=== PATIENT | male | born 1985 | race Caucasian/White ===

== ENCOUNTER 2020-08-05 18:01 | Emergency (ER) | payer OTHER ==
[~2020-08-05] VITALS: Ht 170.2 cm; Wt 113.7 kg
[2020-08-05 18:51] LABS: HEMATOCRIT 43.2 % (42.0-52.0); HEMOGLOBIN 14.7 g/dl (13.5-17.5); MEAN CORPUSCULAR HEMOGLOBIN 33.2 pg (27.0-33.0); MEAN CORPUSCULAR VOLUME 97.5 fl (80.0-96.0); PLATELET COUNT, AUTOMATED 244 10^3/uL (150-450); RED BLOOD COUNT 4.43 10^6/uL (4.30-6.10); WHITE BLOOD COUNT 12.1 10^3/uL (4.0-10.0)
[2020-08-05 19:08] LABS: ATYPICAL LYMPH 2 % (0-5); BASOPHILS 11 % (0-1); EOSINOPHILS 2 % (0-3); LYMPHOCYTES 27 % (16-44); METAMYELOCYTES 4 % (0-0); MONOCYTES 15 % (0-5); NEUTROPHILS 36 % (28-66)
[2020-08-05 19:09] LABS: ANISOCYTOSIS 1+; PLATELET ESTIMATE NORMAL (NORMAL)
--- NOTE | 2020-08-05 19:12 | REPVR ---
PROCEDURE INFORMATION: Exam: CT Head Without Contrast Exam date and time: 08/05/2020 6:54 PM Age: 35 years old Clinical indication: Syncope and collapse TECHNIQUE: Imaging protocol: Computed tomography of the head without contrast. Radiation optimization: All CT scans at this facility use at least one of these dose optimization techniques: automated exposure control; mA and/or kV adjustment per patient size (includes targeted exams where dose is matched to clinical indication); or iterative reconstruction. COMPARISON: No relevant prior studies available. FINDINGS: Brain: Normal. No hemorrhage. Unremarkable white matter. No mass effect. Cerebral ventricles: No ventriculomegaly. Bones/joints: Unremarkable. No acute fracture. Paranasal sinuses: Visualized sinuses are unremarkable. No fluid levels. Mastoid air cells: Visualized mastoid air cells are well aerated. Soft tissues: Unremarkable. IMPRESSION: No acute intracranial abnormality. Electronically signed by: Gab Hernandez On 08/05/2020 19:12:10 PM
--- NOTE | 2020-08-05 19:13 | REPVR ---
PROCEDURE INFORMATION: Exam: XR Chest, 1 View Exam date and time: 08/05/2020 7:00 PM Age: 35 years old Clinical indication: Other: Syncope; Additional info: Syncope/near-syncope TECHNIQUE: Imaging protocol: XR of the chest Views: 1 view. COMPARISON: No relevant prior studies available. FINDINGS: Lungs: Unremarkable. No consolidation. Pleural space: Unremarkable. No pleural effusion. No pneumothorax. Heart/Mediastinum: Unremarkable. No cardiomegaly. Bones/joints: Unremarkable. IMPRESSION: No acute findings. Electronically signed by: Gab Hernandez On 08/05/2020 19:13:05 PM
[2020-08-05 19:35] LABS: BLOOD UREA NITROGEN 16 MG/DL (7-18); CALCIUM LEVEL 8.7 MG/DL (8.5-10.1); CARBON DIOXIDE LEVEL 28 MEQ/L (21-32); CHLORIDE LEVEL 106 MEQ/L (98-107); CK-MB VALUE MASS 10.3 NG/ML (<3.6); CPK CREATINE PHOSPHOKINASE 877 U/L (39-308); CREATININE FOR GFR 1.06 MG/DL (0.70-1.30); ETHYL ALCOHOL (ETHANOL) < 0.003 % (0.000-0.010); FREE T4 0.87 NG/DL (0.76-1.46); GLOMERULAR FILTRATION RATE > 60.0 (>60); GLUCOSE, FASTING 100 MG/DL (70-100); MB/CK RELATIVE INDEX 1.17 (< OR =4); SODIUM LEVEL 141 MEQ/L (136-145); TROPONIN I < 0.02 NG/ML (< 0.10)
[2020-08-05 21:26] LABS: AMPHETAMINES LEVEL URINE NEGATIVE (NEGATIVE); BARBITURATES URINE NEGATIVE (NEGATIVE); BENZODIAZEPINES URINE NEGATIVE (NEGATIVE); CANNABINOIDS URINE NEGATIVE (NEGATIVE); COCAINE METABOLITE URINE NEGATIVE (NEGATIVE); METHADONE URINE NEGATIVE (NEGATIVE); OPIATES URINE NEGATIVE (NEGATIVE); PHENCYCLIDINE URINE NEGATIVE (NEGATIVE)
[2020-08-05 22:15] VITALS: BP 147/82
--- NOTE | 2020-08-07 15:16 | ECGEPIP ---
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
== END 2020-08-05 22:46 | disposition home or self-care (01) ==
LOC: M ED 18:01
DX: R55 Syncope and collapse (principal); F17.200 Nicotine dependence, unspecified, uncomplicated
CPT/HCPCS: 36415; 70450; 71045; 80048; 80307; 82550; 82553; 84439; 84443; 85025; 93005; 93041; 94760; 99285; G0480

== ENCOUNTER → 2021-01-16 | Outpatient (REF) | payer OTHER ==
[~2021-01-16] MED LIST: LISI-898
[2021-01-16 14:03] LABS: BASO % 0.3 % (0.0-1.0); EOS # 0.2 10^3/uL (0.0-0.5); EOS % 2.3 % (0.0-3.0); HEMATOCRIT 48.3 % (42.0-52.0); LYMPH # 3.6 10^3/uL (1.5-5.0); LYMPH % 37.9 % (24.0-44.0); MEAN CORPUSCULAR HGB CONC 33.1 g/dl (32.0-36.5); MEAN CORPUSCULAR VOLUME 99.6 fl (80.0-96.0); MONO # 0.8 10^3/uL (0.0-0.8); MONO % 8.2 % (2.0-8.0); NEUTROPHILS # 4.8 10^3/uL (1.5-8.5); NEUTROPHILS % 50.9 % (36.0-66.0); PLATELET COUNT, AUTOMATED 282 10^3/uL (150-450); RED BLOOD COUNT 4.85 10^6/uL (4.30-6.10); WHITE BLOOD COUNT 9.5 10^3/uL (4.0-10.0)
[2021-01-16 14:46] LABS: HEMOGLOBIN A1c 5.7 %
[2021-01-16 14:47] LABS: ALBUMIN 4.1 GM/DL (3.2-5.2); ALT/SGPT 76 U/L (12-78); BILIRUBIN,TOTAL 0.2 MG/DL (0.2-1.0); BLOOD UREA NITROGEN 18 MG/DL (7-18); CALCIUM LEVEL 9.2 MG/DL (8.5-10.1); CARBON DIOXIDE LEVEL 31 MEQ/L (21-32); CHLORIDE LEVEL 105 MEQ/L (98-107); CHOLESTEROL LEVEL 196 MG/DL (<200); GLOMERULAR FILTRATION RATE > 60.0 (>60); GLUCOSE, FASTING 98 MG/DL (70-100); HDL CHOLESTEROL 28 MG/DL (>40); LDL CHOLESTEROL 124 MG/DL (<100); NON-HDL-C 168 MG/DL; POTASSIUM SERUM 4.7 MEQ/L (3.5-5.1); SODIUM LEVEL 140 MEQ/L (136-145); TOTAL PROTEIN 7.4 GM/DL (6.4-8.2); TRIGLYCERIDES LEVEL 219 MG/DL (<150)
== END ==
LOC: M SFHCPLAZ 09:13
PROVIDERS: ATTEND Physician Assistant Medical
DX: Z00.00 Encounter for general adult medical examination without abnormal findings (principal)

== ENCOUNTER 2021-01-26 22:24 | Emergency (ER) | payer OTHER ==
[~2021-01-26] VITALS: Ht 170.2 cm; Wt 114.4 kg
[2021-01-26] MEDS ORDERED: LISI-898 (22:35)
[2021-01-26] MEDS ORDERED: ASPIRIN 81 MG CHEW TABLET PO ONE (23:00)
[2021-01-26] MEDS ORDERED: NITROGLYCERIN 0.4 MG SUBL TABLET SL PRN (23:00)
[2021-01-26 23:03] LABS: BASO % 0.3 % (0.0-1.0); EOS # 0.3 10^3/uL (0.0-0.5); EOS % 2.4 % (0.0-3.0); HEMATOCRIT 46.2 % (42.0-52.0); HEMOGLOBIN 15.6 g/dl (13.5-17.5); LYMPH # 4.7 10^3/uL (1.5-5.0); LYMPH % 41.1 % (24.0-44.0); MEAN CORPUSCULAR HEMOGLOBIN 33.1 pg (27.0-33.0); MEAN CORPUSCULAR HGB CONC 33.8 g/dl (32.0-36.5); MEAN CORPUSCULAR VOLUME 97.9 fl (80.0-96.0); MONO # 1.1 10^3/uL (0.0-0.8); MONO % 9.6 % (2.0-8.0); NEUTROPHILS # 5.3 10^3/uL (1.5-8.5); NEUTROPHILS % 46.2 % (36.0-66.0); PLATELET COUNT, AUTOMATED 262 10^3/uL (150-450); RED BLOOD COUNT 4.72 10^6/uL (4.30-6.10); WHITE BLOOD COUNT 11.4 10^3/uL (4.0-10.0)
[2021-01-26 23:11] LABS: INR 0.88; PARTIAL THROMBOPLASTIN TIME 27.7 SECONDS (24.2-38.5); PROTHROMBIN TIME 12.1 SECONDS (12.5-14.3)
[2021-01-26 23:19] LABS: D-DIMER QUANT < 270 ng/ml (<500)
[2021-01-26 23:27] LABS: ALT/SGPT 80 U/L (12-78); BILIRUBIN,DIRECT < 0.1 MG/DL (0.0-0.2); BILIRUBIN,TOTAL 0.1 MG/DL (0.2-1.0); BLOOD UREA NITROGEN 19 MG/DL (7-18); CALCIUM LEVEL 8.5 MG/DL (8.5-10.1); CARBON DIOXIDE LEVEL 28 MEQ/L (21-32); CHLORIDE LEVEL 107 MEQ/L (98-107); CK-MB VALUE MASS 6.7 NG/ML (<3.6); CPK CREATINE PHOSPHOKINASE 351 U/L (39-308); CREATININE FOR GFR 0.92 MG/DL (0.70-1.30); GLOMERULAR FILTRATION RATE > 60.0 (>60); GLUCOSE, FASTING 84 MG/DL (70-100); LIPASE 268 U/L (73-393); MB/CK RELATIVE INDEX 1.91 (< OR =4); POTASSIUM SERUM 4.2 MEQ/L (3.5-5.1); SODIUM LEVEL 140 MEQ/L (136-145); TOTAL PROTEIN 7.4 GM/DL (6.4-8.2); TROPONIN I < 0.02 NG/ML (< 0.10)
--- NOTE | 2021-01-26 23:36 | REPVR ---
PROCEDURE INFORMATION: Exam: XR Chest Exam date and time: 01/26/2021 11:07 PM Age: 35 years old Clinical indication: Chest pain TECHNIQUE: Imaging protocol: XR of the chest Views: 1 view. COMPARISON: CR PORTABLE CHEST X-RAY 08/05/2020 6:57 PM FINDINGS: Lungs: There is decreased inflation of the lungs. Pleural spaces: Unremarkable. No pleural effusion. No pneumothorax. Heart/Mediastinum: Unremarkable. No cardiomegaly. Bones/joints: Unremarkable. Soft tissues: There are moderately generous overlying soft tissues. IMPRESSION: Negative poor inspiratory chest without change from 08/05/2020 . Electronically signed by: Easotn Starr On 01/26/2021 23:35:45 PM
[2021-01-27 05:37] LABS: CK-MB VALUE MASS 5.5 NG/ML (<3.6); CPK CREATINE PHOSPHOKINASE 261 U/L (39-308); MB/CK RELATIVE INDEX 2.11 (< OR =4); TROPONIN I < 0.02 NG/ML (< 0.10)
[2021-01-27 06:30] VITALS: BP 141/65
--- NOTE | 2021-01-27 07:52 | ECGEPIP ---
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
--- NOTE | 2021-01-27 07:53 | ECGEPIP ---
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
== END 2021-01-27 06:36 | disposition home or self-care (01) ==
LOC: M ED 22:24
DX: R07.9 Chest pain, unspecified (principal); R00.1 Bradycardia, unspecified; R06.02 Shortness of breath; I10 Essential (primary) hypertension; F32.9 Major depressive disorder, single episode, unspecified; F17.200 Nicotine dependence, unspecified, uncomplicated

== ENCOUNTER 2022-09-29 18:39 | Inpatient (IN) | payer OTHER ==
[~2022-09-29] VITALS: Ht 170.2 cm; Wt 115.9 kg
[~2022-09-29 18:39] MED LIST changes: -LISI-898; +LISI5TAB11 PO
[2022-09-29 20:20] LABS: HEMATOCRIT 49.5 % (42.0-52.0); HEMOGLOBIN 16.5 g/dl (13.5-17.5); MEAN CORPUSCULAR HEMOGLOBIN 33.4 pg (27.0-33.0); MEAN CORPUSCULAR HGB CONC 33.3 g/dl (32.0-36.5); MEAN CORPUSCULAR VOLUME 100.2 fl (80.0-96.0); PLATELET COUNT, AUTOMATED 278 10^3/uL (150-450); RED BLOOD COUNT 4.94 10^6/uL (4.30-6.10); WHITE BLOOD COUNT 11.9 10^3/uL (4.0-10.0)
[2022-09-29 20:24] LABS: RSV AMPLIFICATION NEGATIVE (NEGATIVE)
[2022-09-29 20:33] LABS: AMPHETAMINES LEVEL URINE NEGATIVE (NEGATIVE); BARBITURATES URINE NEGATIVE (NEGATIVE); BENZODIAZEPINES URINE NEGATIVE (NEGATIVE); CANNABINOIDS URINE NEGATIVE (NEGATIVE); COCAINE METABOLITE URINE NEGATIVE (NEGATIVE); METHADONE URINE NEGATIVE (NEGATIVE); OPIATES URINE NEGATIVE (NEGATIVE); PHENCYCLIDINE URINE NEGATIVE (NEGATIVE)
[2022-09-29 20:59] LABS: ACETAMINOPHEN LEVEL < 2.0 UG/ML (10.0-20.0); ALBUMIN 4.2 G/DL (3.2-5.2); ALT/SGPT 53 U/L (7.0-40); BILIRUBIN,DIRECT < 0.1 MG/DL (<0.4); BILIRUBIN,TOTAL 0.3 MG/DL (0.3-1.2); BLOOD UREA NITROGEN 17 MG/DL (9-23); CALCIUM LEVEL 9.9 MG/DL (8.5-10.1); CARBON DIOXIDE LEVEL 29 MMOL/L (20-31); CHLORIDE LEVEL 103 MMOL/L (98-107); CREATININE FOR GFR 0.95 MG/DL (0.70-1.30); ETHYL ALCOHOL (ETHANOL) 0.004 % (0.000-0.010); GLOMERULAR FILTRATION RATE > 60.0 (>60); GLUCOSE, FASTING 89 MG/DL (60-100); POTASSIUM SERUM 4.2 MMOL/L (3.5-5.1); SODIUM LEVEL 140 MMOL/L (136-145); THYROID STIMULATING HORMONE 2.455 uIU/ML (0.55-4.78)
[2022-09-29 21:33] LABS: SALICYLATE LEVEL < 3.0 MG/DL (<30)
[2022-09-30] MEDS ORDERED: HOME MED LIST COMPLETE! XX SCH (00:15)
[2022-10-01] MEDS: lisinopriL 5 MG TAB PO SCH (08:51)
[2022-10-02] MEDS: lisinopriL 5 MG TAB PO SCH (08:54)
[2022-10-02] MEDS ORDERED: NICOTINE 21MG/24HR 1 EA TRANSDERMAL TD ONE (10:00)
[2022-10-02] MEDS ORDERED: MAALOX 30 ML SUSP *UDC PO PRN (12:55)
[2022-10-02] MEDS ORDERED: MOM 30ML SUSPENSION UDC PO PRN (12:55)
[2022-10-02] MEDS ORDERED: IBUPROFEN 400MG TAB PO PRN (12:55)
[2022-10-02 15:38] VITALS: BP 165/82
[2022-10-03 06:16] VITALS: BP 124/71
[2022-10-03] MEDS: lisinopriL 5 MG TAB PO SCH (08:28)
[2022-10-03] MEDS: NICOTINE 21MG/24HR 1 EA TRANSDERMAL TD PRN (11:31)
[2022-10-03] MEDS: SERTRALINE HCL 50 MG TAB PO SCH (11:32)
[2022-10-03 18:14] VITALS: BP 135/79
[2022-10-03] MEDS: PRAZOSIN 1 MG CAP PO SCH (20:17)
[2022-10-04 06:19] VITALS: BP 128/58
[2022-10-04] MEDS: SERTRALINE HCL 50 MG TAB PO SCH (08:16)
[2022-10-04] MEDS: NICOTINE 21MG/24HR 1 EA TRANSDERMAL TD PRN (08:16)
[2022-10-04] MEDS: lisinopriL 5 MG TAB PO SCH (08:16)
[2022-10-04 18:00] VITALS: BP 139/81
[2022-10-04] MEDS: PRAZOSIN 1 MG CAP PO SCH (20:19)
[2022-10-04] MEDS ORDERED: ONDANSETRON 4MG TAB PO PRN (23:15)
[2022-10-04] MEDS ORDERED: OLANZapine ORAL DISINTEGRATING TAB 5MG PO ONE (23:15)
[2022-10-04] MEDS ORDERED: traZODone 50 MG TAB PO PRN (23:20)
[2022-10-05 06:57] VITALS: BP 127/78
[2022-10-05] MEDS: lisinopriL 5 MG TAB PO SCH (08:19)
[2022-10-05] MEDS: SERTRALINE HCL 50 MG TAB PO SCH (08:19)
[2022-10-05] MEDS: NICOTINE 21MG/24HR 1 EA TRANSDERMAL TD PRN (08:21)
[2022-10-05] MEDS: DICLOFENAC EPOLAMINE 1.3 % PATCH TOP SCH ×2 (10:34→19:55)
[2022-10-05 18:27] VITALS: BP 147/73
[2022-10-05] MEDS: PRAZOSIN 1 MG CAP PO SCH (19:54)
[2022-10-05] MEDS: MIRTAZAPINE 7.5MG PER 1/2 TABLET PO SCH (19:54)
[2022-10-06 06:29] VITALS: BP 146/79
[2022-10-06] MEDS: lisinopriL 5 MG TAB PO SCH (08:13)
[2022-10-06] MEDS: DICLOFENAC EPOLAMINE 1.3 % PATCH TOP SCH ×2 (08:14→19:47)
[2022-10-06] MEDS: SERTRALINE HCL 50 MG TAB PO SCH (08:14)
[2022-10-06] MEDS: NICOTINE 21MG/24HR 1 EA TRANSDERMAL TD PRN (08:14)
[2022-10-06 16:34] VITALS: BP 138/83
[2022-10-06] MEDS: PRAZOSIN 1 MG CAP PO SCH (19:46)
[2022-10-06] MEDS: MIRTAZAPINE 7.5MG PER 1/2 TABLET PO SCH (19:46)
[2022-10-07 06:46] VITALS: BP 137/69
[2022-10-07] MEDS: SERTRALINE HCL 50 MG TAB PO SCH (08:13)
[2022-10-07] MEDS: NICOTINE 21MG/24HR 1 EA TRANSDERMAL TD PRN (08:13)
[2022-10-07] MEDS: DICLOFENAC EPOLAMINE 1.3 % PATCH TOP SCH ×2 (08:13→20:07)
[2022-10-07] MEDS: lisinopriL 5 MG TAB PO SCH (08:14)
[2022-10-07 17:01] VITALS: BP 138/74
[2022-10-07] MEDS: PRAZOSIN 1 MG CAP PO SCH (20:07)
[2022-10-07] MEDS: MIRTAZAPINE 7.5MG PER 1/2 TABLET PO SCH (20:07)
[2022-10-08 06:06] VITALS: BP 143/79
[2022-10-08] MEDS: DICLOFENAC EPOLAMINE 1.3 % PATCH TOP SCH (08:36)
[2022-10-08] MEDS: SERTRALINE HCL 50 MG TAB PO SCH (08:36)
[2022-10-08] MEDS: NICOTINE 21MG/24HR 1 EA TRANSDERMAL TD PRN (08:36)
[2022-10-08 08:37] VITALS: BP 143/79
[2022-10-08] MEDS: lisinopriL 5 MG TAB PO SCH (08:37)
[2022-10-08] MEDS ORDERED: NICO21PAT TD (09:45)
[2022-10-08] MEDS ORDERED: MINI1CAP PO (09:45)
[2022-10-08] MEDS ORDERED: SERT50TA29 PO (09:45)
[2022-10-08] MEDS ORDERED: MIRT-10 PO (09:45)
[2022-10-08] MEDS ORDERED: DICL1PAT6 TOP (09:45)
== END 2022-10-08 12:20 | disposition home or self-care (01) | DRG 755 ==
LOC: M ED 18:39 → M ED INP 10-02 12:51 → M PSY 10-02 15:17
PROVIDERS: ADMIT Student in an Organized Health Care Education/Training Program; ATTEND Student in an Organized Health Care Education/Training Program
DX: F43.10 Post-traumatic stress disorder, unspecified (principal); F60.89 Other specific personality disorders; F17.210 Nicotine dependence, cigarettes, uncomplicated; R45.851 Suicidal ideations; M25.561 Pain in right knee; Z91.51 Personal history of suicidal behavior; I10 Essential (primary) hypertension; Z20.822 Contact with and (suspected) exposure to COVID-19; Z79.899 Other long term (current) drug therapy; Z71.6 Tobacco abuse counseling